=== PATIENT | male | born 1985 | race Caucasian/White ===

== ENCOUNTER 2018-03-16 11:43 | Emergency (ER) | payer MEDICAID ==
[~2018-03-16] VITALS: Ht 167.6 cm; Wt 81.2 kg
[2018-03-16 11:43] VITALS: BP 150/88
--- NOTE | 2018-03-16 11:43 | NUR ---
PT BIBA BLS TO BED 5
--- NOTE | 2018-03-16 12:14 | NUR ---
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 Skin is cool/dry/color apprioriate for ethnicity. Patient denies any loc or vomitting. Patient is aox4 to person, place, time, and situation. RR are even and unlabored. bs active x4, abd soft non tender. pt denies any pain. hx--anxiety, depression rx--patient denies
--- NOTE | 2018-03-16 12:20 | NUR ---
Patient being evaluated by physician at bedside.
[2018-03-16 12:54] VITALS: BP 133/93
--- NOTE | 2018-03-16 12:54 | NUR ---
Patient discharged with v/s stable. Written and verbal after care instructions given and explained. Patient verbalized understanding. Ambulatory with steady gait. All questions addressed prior to discharge. Advised to follow up with PMD.
== END 2018-03-16 12:54 | disposition home or self-care (01) ==
LOC: MED 11:43
DX: R42 Dizziness and giddiness (principal); R11.0 Nausea; R06.02 Shortness of breath; F41.9 Anxiety disorder, unspecified
CPT/HCPCS: 99284

== ENCOUNTER 2022-01-20 18:36 | Inpatient (IN) | payer BC, MEDICAID ==
[~2022-01-20] VITALS: Ht 167.6 cm; Wt 85.3 kg
[2022-01-20 19:08] VITALS: BP 164/113
--- NOTE | 2022-01-20 19:13 | NUR ---
TO LOBBY FOLLOWING TRIAGE
--- NOTE | 2022-01-20 19:47 | NUR ---
PT TAKEN TO CT
[2022-01-20 19:51] LABS: APPEARANCE,URINE SL CLOUDY (CLEAR); BILIRUBIN,URINE NEGATIVE (NEGATIVE); BLOOD, URINE 3+ (NEGATIVE); COLOR,URINE RED (YELLOW); LEUKOCYTE ESTERASE ,URINE NEGATIVE (NEGATIVE); NITRITE, URINE POSITIVE (NEGATIVE); UGLUCOSE NEGATIVE (NEGATIVE)
[2022-01-20 19:54] LABS: BASOPHILS # (AUTO) 0.1 K/uL (0.00-0.22); BASOPHILS % (AUTO) 0.5 % (0.0-2.0); EOSINOPHILS # (AUTO) 0.1 K/uL (0-0.4); EOSINOPHILS % (AUTO) 0.5 % (0.0-4.0); HEMATOCRIT 45.5 % (36-52); HEMOGLOBIN 15.5 g/dL (12.0-18.0); LYMPHOCYTES # (AUTO) 2.4 K/uL (2.0-11.5); LYMPHOCYTES % (AUTO) 16.3 % (20.5-51.1); MEAN CORPUSCULAR HEMOGLOBIN 30 pg (27-31); MEAN CORPUSCULAR HGB CONC 34 g/dL (33-37); MEAN CORPUSCULAR VOLUME 86.7 fL (80-94); MONOCYTES # (AUTO) 1.3 K/uL (0.8-1.0); MONOCYTES % (AUTO) 8.8 % (1.7-9.3); NEUTROPHILS % (AUTO) 73.9 % (42.2-75.2); PLATELET COUNT (AUTO) 200 K/uL (140-450); RED BLOOD CELL COUNT(AUTO) 5.25 MIL/uL (4.20-6.10); RED CELL DISTRIBUTION WIDTH 12.7 % (11.6-13.7); WHITE BLOOD COUNT (AUTO) 14.9 K/uL (4.8-10.8)
--- NOTE | 2022-01-20 20:02 | NUR ---
PT RETURN FROM CT
[2022-01-20 20:06] LABS: RBC,URINE 11-20 (MOD) /HPF (0-5)
[2022-01-20 20:07] LABS: OTHER CASTS, URINE None Seen /LPF (None Seen); WBC,URINE 0-5 /HPF (0-5)
[2022-01-20 20:13] LABS: ALBUMIN 4.4 g/dL (3.4-5.0); CARBON DIOXIDE 27.6 mmol/L (21-32); CREATININE 1.3 mg/dL (0.6-1.3); POTASSIUM 3.6 mmol/L (3.5-5.1); TOTAL BILIRUBIN 1.1 mg/dL (0.0-1.0)
[2022-01-20] MEDS ORDERED: KETOROLAC 30 MG/ML VIAL IVP ONE (20:50)
[2022-01-20] MEDS ORDERED: NACL 0.9% 1,000 ML IV ONE (20:50)
--- NOTE | 2022-01-20 20:50 | NUR ---
PT TO BED 11
--- NOTE | 2022-01-20 20:55 | NUR ---
NICKOLAS COLLECTED AND TAKEN TO LAB. PT DENIES OPEN WOUNDS. PT CANNOUT RECALL BP MEDICATION. MED RECON COMPLETED.
--- NOTE | 2022-01-20 20:59 | NUR ---
Dr. Connor examining patient.
[2022-01-20] MEDS ORDERED: ONDANSETRON 4 MG/2 ML VIAL IVP ONE (21:10)
[2022-01-20] MEDS ORDERED: ONDANSETRON 4 MG/2 ML VIAL ONE (21:10)
[2022-01-20] MEDS ORDERED: cefTRIAXone 1,000 MG VIAL ONE (21:10)
[2022-01-20] MEDS ORDERED: MORPHINE SULFATE 2 MG/ML SYR IVP PRN ×2 (21:15→21:20)
[2022-01-20] MEDS ORDERED: ONDANSETRON 4 MG/2 ML VIAL IVP PRN ×2 (21:15→21:20)
[2022-01-20] MEDS ORDERED: NACL 0.9% 1,000 ML IV SCH (21:15)
[2022-01-20] MEDS ORDERED: ACETAMINOPHEN 325 MG TAB PO PRN ×2 (21:15→21:20)
[2022-01-20] MEDS: NACL 0.9% 1,000 ML IV SCH (21:20)
[2022-01-20] MEDS ORDERED: POTASSIUM CHLORIDE 10 MEQ TABER PO PRN (21:20)
[2022-01-20] MEDS ORDERED: ZOLPIDEM 10 MG TAB PO PRN (21:20)
[2022-01-20] MEDS ORDERED: MAG SULF 2000 MG/WATER PREMIX 50 ML IV PRN (21:20)
[2022-01-20] MEDS ORDERED: DOCUSATE SODIUM 100 MG GELCAP PO PRN (21:20)
--- NOTE | 2022-01-20 21:28 | NUR ---
36 YO M BIB SELF WITH 10/10 FLANK PAIN X5PM. PT STATED THE PAIN BEGAN SUDDENLY AND IS CONSTANT, RAD TO BILAT SIDES AND ABD. +NAUSEA. DENIES V/D. PT DENIES URINARY PROBLEMS. PT DENIES TAKING MEDICATION AT HOME FOR PAIN. DENIES HX, RX AND ALLERGIES
[2022-01-20] MEDS ORDERED: MORPHINE SULFATE 2 MG/ML SYR ONE (21:38)
--- NOTE | 2022-01-20 22:37 | NUR ---
PT AMBULATED TO RR AND BACK TO BED
--- NOTE | 2022-01-21 00:52 | NUR ---
PT APPEARS TO BE RESTING WITH EYES CLOSED. OPENS EYES TO SOUND. PT ON JOB HAND. EQUAL RISE AND FALL OF CHEST WALL. BED LOCKED IN LOWEST POSITION, SIDE RAILS X2 FOR SAFETY.
--- NOTE | 2022-01-21 03:23 | NUR ---
PT APPEARS TO BE RESTING WITH EYES CLOSED. OPENS EYES TO SOUND. 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 EQUAL RISE AND FALL OF CHEST WALL. BED LOCKED IN LOWEST POSITION, SIDE RAILS X2 FOR SAFETY.
--- NOTE | 2022-01-21 05:02 | NUR ---
PT APPEARS TO BE RESTING WITH EYES CLOSED. OPENS EYES TO SOUND. 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 EQUAL RISE AND FALL OF CHEST WALL. BED LOCKED IN LOWEST POSITION, SIDE RAILS X2 FOR SAFETY.
--- NOTE | 2022-01-21 06:18 | NUR ---
LAB AT BEDSIDE.
[2022-01-21 06:41] LABS: BASOPHILS # (AUTO) 0.1 K/uL (0.00-0.22); BASOPHILS % (AUTO) 0.5 % (0.0-2.0); EOSINOPHILS # (AUTO) 0.1 K/uL (0-0.4); EOSINOPHILS % (AUTO) 0.5 % (0.0-4.0); HEMATOCRIT 43.3 % (36-52); HEMOGLOBIN 14.9 g/dL (12.0-18.0); LYMPHOCYTES # (AUTO) 2.3 K/uL (2.0-11.5); LYMPHOCYTES % (AUTO) 18.8 % (20.5-51.1); MEAN CORPUSCULAR HEMOGLOBIN 30 pg (27-31); MEAN CORPUSCULAR HGB CONC 35 g/dL (33-37); MEAN CORPUSCULAR VOLUME 86.4 fL (80-94); MONOCYTES # (AUTO) 1.4 K/uL (0.8-1.0); MONOCYTES % (AUTO) 11.5 % (1.7-9.3); NEUTROPHILS # (AUTO) 8.2 K/uL (1.8-7.7); NEUTROPHILS % (AUTO) 68.7 % (42.2-75.2); PLATELET COUNT (AUTO) 186 K/uL (140-450); RED BLOOD CELL COUNT(AUTO) 5.01 MIL/uL (4.20-6.10); RED CELL DISTRIBUTION WIDTH 12.8 % (11.6-13.7)
[2022-01-21 07:16] LABS: ANION GAP 12.3 (8-16); CARBON DIOXIDE 27.6 mmol/L (21-32); CREATININE 1.4 mg/dL (0.6-1.3); POTASSIUM 3.9 mmol/L (3.5-5.1)
[2022-01-21] MEDS: NACL 0.9% 1,000 ML IV SCH (07:20)
--- NOTE | 2022-01-21 07:24 | NUR ---
RECEIVED REPORT FROM STACEY CASTRO. ASSUMED CARE AT THIS TIME.
--- NOTE | 2022-01-21 07:45 | NUR ---
Patient will be admitted to care of DR. MONDRAGON. Admited to TELE. Will go to room 127A. Belongings list completed. BEDSIDE Report to HAL IBARRA.
--- NOTE | 2022-01-21 07:52 | NUR ---
RECEIVED PT FROM ED BY MARIA ISABEL IN STABLE CONDITION. ON ROOM AIR WITH CHEST RISING AND FALLING EVEN AND UNLABORED. NO COMPLAINTS OF PAIN AT THIS TIME. SKIN INTACT. LAST BM 01/20/22. LEFT 18 AC PATENT AND INTACT. ALL SAFETY MEASURES IN PLACE, CALL LIGHT WITHIN REACH. WILL CONTINUE TO MONITOR.
[2022-01-21 08:00] VITALS: BP 142/91
[2022-01-21] MEDS ORDERED: TAMSULOSIN 0.4 MG CAP PO SCH (08:30)
--- NOTE | 2022-01-21 09:14 | NUR ---
PATIENT HAS BEEN SCREENED AND CATEGORIZED LOW NUTRITION RISK. PATIENT WILL BE SEEN WITHIN 7 DAYS OF ADMISSION. 01/27/[address] RADHA ANGELES RD
[2022-01-21] MEDS ORDERED: TAMS0.4C96 PO (09:26)
[2022-01-21] MEDS ORDERED: IBUP-2213 PO (09:26)
[2022-01-21] MEDS ORDERED: LEVO-481 PO (09:28)
--- NOTE | 2022-01-21 09:45 | NUR ---
SUMI MEDICATION ADMINISTERED PER MD ORDER, IV PATENT AND INTACT. SANDWICH AND WATER PROVIDED TO PT FOR REGULAR DIET. PT REPORTS PAIN TOLERABLE. PT REPORTS ALL NEEDS MET. ALL SAFETY MEASURES IN PLACE, CALL LIGHT WITHIN REACH. WILL CONTINUE TO MONITOR
--- NOTE | 2022-01-21 11:42 | NUR ---
ALL DISCHARGE EDUCATION PROVIDED TO PT REGARDING PRESCRIPTION, FOLLOW UP APPOINTMENT, AND S/S TO MONITOR FOR. PT VERBALIZED UNDERSTANDING. ALL QUESTIONS HAS BEEN ANSWERED. VSS. IV REMOVED, CATH IN PLACE, PT TOLERATED. TELE MONITOR REMOVED AND PLACED IN MONITOR ROOM. ALL DC PAPERWORK SIGNED. CALL LIGHT WITHIN REACH TO CALL WHEN RADHA SIEGEL GETS TO THE HOSPITAL TO PICK PT UP. ALL BELONGINGS IN POSSESSION ON BEDSIDE.
--- NOTE | 2022-01-21 12:08 | NUR ---
PT WAS DISCHARGED IN STABLE CONDITION. WALKED OUT TO FRONT LOBBY WITH PRIMARY RN. ALL BELONGINGS IN POSSESSION
== END 2022-01-21 15:47 | disposition home or self-care (01) | DRG 694 ==
LOC: MED 18:36 → MMU 21:16
PROVIDERS: ADMIT Family Medicine; ATTEND Family Medicine
DX: N13.2 Hydronephrosis with renal and ureteral calculous obstruction (principal); N17.0 Acute kidney failure with tubular necrosis; I10 Essential (primary) hypertension; D72.829 Elevated white blood cell count, unspecified; Z20.822 Contact with and (suspected) exposure to COVID-19; Z79.1 Long term (current) use of non-steroidal anti-inflammatories (NSAID); Z79.899 Other long term (current) drug therapy
CPT/HCPCS: 36415; 80048; 80053; 81001; 83690; 83735; 85025; 96365; 96375; 99285; J0696; J1885; J2270; J2405; J7060

== ENCOUNTER 2022-09-07 22:29 | Emergency (ER) | payer BC ==
[~2022-09-07] VITALS: Ht 170.2 cm; Wt 75.7 kg
[~2022-09-07 22:29] MED LIST: IBUP-2213 PO; LEVO-481 PO; TAMS0.4C96 PO
[2022-09-07 22:50] VITALS: BP 157/100
--- NOTE | 2022-09-07 22:53 | NUR ---
TO LOBBY A/W BED AMBULATORY
[2022-09-08] MEDS ORDERED: NACL 0.9% 1,000 ML IV SCH (00:30)
[2022-09-08] MEDS ORDERED: KETOROLAC 30 MG/ML VIAL IVP ONE (00:30)
--- NOTE | 2022-09-08 00:32 | NUR ---
Nikki infante in [facility] - 09/08/22 at 0039 by JEY PT TAKEN TO CT
--- NOTE | 2022-09-08 00:35 | NUR ---
Patient taken to bed 4.
--- NOTE | 2022-09-08 00:39 | NUR ---
PT TAKEN TO CT
--- NOTE | 2022-09-08 01:00 | NUR ---
Patient received on bed lying and awake. Alert and oriented x4. No acute distress. Complained of left flank pain with scale of 7/10. Respirations even and unlabored.
[2022-09-08 01:27] LABS: BASOPHILS # (AUTO) 0.1 K/uL (0.00-0.22); BASOPHILS % (AUTO) 0.4 % (0.0-2.0); EOSINOPHILS # (AUTO) 0.1 K/uL (0-0.4); HEMATOCRIT 43.7 % (36-52); HEMOGLOBIN 14.6 g/dL (12.0-18.0); LYMPHOCYTES # (AUTO) 2.3 K/uL (2.0-11.5); LYMPHOCYTES % (AUTO) 18.8 % (20.5-51.1); MEAN CORPUSCULAR HEMOGLOBIN 30 pg (27-31); MEAN CORPUSCULAR HGB CONC 34 g/dL (33-37); MEAN CORPUSCULAR VOLUME 88.9 fL (80-94); MONOCYTES % (AUTO) 8.6 % (1.7-9.3); NEUTROPHILS # (AUTO) 8.6 K/uL (1.8-7.7); NEUTROPHILS % (AUTO) 71.2 % (42.2-75.2); PLATELET COUNT (AUTO) 181 K/uL (140-450); RED BLOOD CELL COUNT(AUTO) 4.92 MIL/uL (4.20-6.10); RED CELL DISTRIBUTION WIDTH 12.8 % (11.6-13.7)
[2022-09-08 01:38] LABS: ALBUMIN 4.5 g/dL (3.4-5.0); ANION GAP 15.1 (8-16); CREATININE 1.3 mg/dL (0.6-1.3); POTASSIUM 3.1 mmol/L (3.5-5.1); TOTAL BILIRUBIN 0.7 mg/dL (0.0-1.0)
[2022-09-08 02:01] LABS: APPEARANCE,URINE CLEAR (CLEAR); BILIRUBIN,URINE NEGATIVE (NEGATIVE); BLOOD, URINE 2+ (NEGATIVE); COLOR,URINE YELLOW (YELLOW); LEUKOCYTE ESTERASE ,URINE NEGATIVE (NEGATIVE); NITRITE, URINE NEGATIVE (NEGATIVE); UGLUCOSE NEGATIVE (NEGATIVE)
[2022-09-08 02:27] LABS: RBC,URINE TOO NUMEROUS TO COUN /HPF (0-5); WBC,URINE 0-5 /HPF (0-5)
[2022-09-08] MEDS ORDERED: NAPR-54 PO (03:07)
--- NOTE | 2022-09-08 03:09 | NUR ---
Dr. Borja examining patient.
[2022-09-08 03:10] VITALS: BP 121/64
== END 2022-09-08 03:10 | disposition home or self-care (01) ==
LOC: MED 22:29
DX: R10.9 Unspecified abdominal pain (principal); N20.0 Calculus of kidney; I10 Essential (primary) hypertension; Z79.899 Other long term (current) drug therapy
CPT/HCPCS: 36415; 74176; 80053; 81001; 85025; 96361; 96374; 99285; J1885; J7030